=== PATIENT | female | born 2005 | race African-American/Black ===

== ENCOUNTER 2023-03-26 21:37 | Emergency (ER) | payer MEDICAID ==
[~2023-03-26] VITALS: Ht 165.1 cm; Wt 63.6 kg
[2023-03-26 22:47] LABS: Basophils # (auto) 0 10 ^3/uL (0-0.2); Basophils % (auto) 0.8 % (0.0-2.0); Eosinophils # (auto) 0 10 ^3/uL (0-0.8); Eosinophils % (auto) 0.3 % (0.0-7.0); Hematocrit 42.4 % (36.0-46.0); Hemoglobin 13.6 g/dL (12.2-16.2); Lymphocytes # (auto) 1.1 10 ^3/uL (0.4-5.4); Lymphocytes % (auto) 24.3 % (10.0-50.0); Mean Corpuscular Hemoglobin 27.8 pg (28.0-32.0); Mean Corpuscular Hgb Conc. 32.1 g/dL (32.0-36.0); Mean Corpuscular Volume 86.8 fL (80.0-100.0); Monocytes # (auto) 0.4 10 ^3/uL (0-1.3); Monocytes % (auto) 8.1 % (0.0-12.0); Neutrophils # (auto) 3.1 10 ^3/uL (1.6-8.6); Neutrophils % (auto) 66.5 % (37.0-80.0); Nucleated Red Blood Cells % 0.1 %; Red Blood Cells 4.89 10^6/uL (4.0-5.20); Red Cell Distribution Width 15.3 % (11.8-14.3); White Blood Cell 4.7 10^3/uL (4.4-10.8)
[2023-03-26 22:57] LABS: Albumin 4.2 g/dL (3.4-5.0); Magnesium 2.3 mg/dL (1.6-2.6); Potassium 3.3 mmol/L (3.5-5.1)
[2023-03-26 23:00] LABS: Bilirubin, Total 0.4 mg/dL (0.2-1.0); Total Protein 8.7 g/dL (6.4-8.2)
[2023-03-27 01:48] LABS: Urine Bacteria FEW /hpf (None Seen); Urine Blood 3+ /uL (Negative); Urine Clarity HAZY (Clear); Urine Color Yellow (Yellow); Urine Protein, UAD TRACE (Negative); Urine Specific Gravity 1.011 (1.001-1.035); Urine Urobilinogen Normal (Negative); Urine WBC 5 /hpf (0 - 5)
[2023-03-27 06:10] VITALS: BP 130/92; TEMP 97.8
[2023-03-27] MEDS ORDERED: levoFLOXacin 500 MG TAB PO ONE (07:45)
[2023-03-27 07:53] VITALS: PULSE 55; RESP 16; O2SAT 100
[2023-03-27] MEDS ORDERED: NITR-87 PO (07:57)
== END 2023-03-27 08:03 | disposition home or self-care (01) ==
LOC: EDBD 21:37 → ER 21:40
DX: N39.0 Urinary tract infection, site not specified (principal); R10.2 Pelvic and perineal pain; R19.7 Diarrhea, unspecified; R51.9 Headache, unspecified; Z79.899 Other long term (current) drug therapy
CPT/HCPCS: 36415; 70450; 71250; 74176; 80053; 81001; 83690; 83735; 84702; 85025